=== PATIENT | male | born 1995 | race Two or more races ===

== ENCOUNTER 2016-11-02 10:27 | Emergency (ER) | payer MEDICAID ==
[2016-11-02] MEDS ORDERED: LEVOTHYROXINE75 MC3 PO (10:50)
[2016-11-02 11:45] LABS: URINE BILIRUBIN NEGATIVE (NEG); URINE BLOOD NEGATIVE (NEG); URINE GLUCOSE (UA) NEGATIVE (NEG); URINE KETONE NEGATIVE (NEG); URINE LEUKOCYTE ESTERASE NEGATIVE (NEG); URINE NITRITE NEGATIVE (NEG); URINE PROTEIN NEGATIVE (NEG)
[2016-11-02 11:51] LABS: URINE APPEARANCE CLEAR; URINE COLOR YELLOW
[2016-11-02] MEDS ORDERED: ZOFRAN4 M2 PO (12:17)
[2016-11-02] MEDS ORDERED: AZITHROMYCIN250 M1 PO (12:17)
== END 2016-11-02 12:40 ==
LOC: EDMED 10:27
PROVIDERS: Emergency Medicine
DX: J18.9 Pneumonia, unspecified organism (principal); R11.10 Vomiting, unspecified; Q90.9 Down syndrome, unspecified; E07.9 Disorder of thyroid, unspecified; Z79.890 Hormone replacement therapy; Z79.899 Other long term (current) drug therapy